=== PATIENT | female | born 1985 | race Two or more races ===

== ENCOUNTER 2022-10-07 11:14 | Emergency (ER) | payer OTHER ==
[~2022-10-07] VITALS: Ht 165.1 cm; Wt 70.3 kg
== END 2022-10-07 17:01 | disposition home or self-care (01) ==
LOC: ER 11:14
DX: S93.402A Sprain of unspecified ligament of left ankle, initial encounter (principal); X58.XXXA Exposure to other specified factors, initial encounter; Y93.02 Activity, running; Y92.89 Other specified places as the place of occurrence of the external cause; Y99.9 Unspecified external cause status; Z88.8 Allergy status to other drugs, medicaments and biological substances